=== PATIENT | female | born 1955 | race Caucasian/White ===

== ENCOUNTER → 2020-10-24 | Day surgery (SDC) | payer BC, MEDICARE ==
[~2020-10-24] MED LIST: Ketamine 200 MG/20 ML MDV ONE; Lactated Ringers 1,000 ML IV SCH; Propofol 200 MG/20 ML SDV ONE; fentaNYL 100 MCG/2 ML SDV ONE
[2020-10-24 10:47] VITALS: BP 105/59; PULSE 53
--- NOTE | 2020-10-24 11:49 | OR ---
DATE OF OPERATION: 10/24/2020 PREOPERATIVE DIAGNOSIS: SCREENING COLONOSCOPY. POSTOPERATIVE DIAGNOSIS: SCREENING COLONOSCOPY. SURGEON: Aleksandr Andrade MD PROCEDURE: FULL-LENGTH COLONOSCOPY WITH FORCEPS POLYP REMOVAL X2. ANESTHESIA: MAC. COMPLICATIONS: None. SPECIMEN: Tubular adenomas x2. FINDINGS: 1. Full-length colonoscopy. 2. [id number] distal sigmoid diverticulosis. 3. Two sessile polyps, approximately 3 mm in rectosigmoid junction. RECOMMENDATIONS: Followup colonoscopy in 5 years. INDICATIONS: The patient is overdue for routine colonoscopy. She was sent by Carlene Gutierrez for screening exam. DESCRIPTION OF PROCEDURE: The patient was prepped and draped, placed in the left lateral decubitus position. A lubricated Olympus colonoscope was inserted and with relative ease advanced to the cecum. Direct visualization of ileocecal valve and appendiceal orifice was accomplished. The bowel prep was adequate. Upon withdrawal of the scope, the cecum, ascending, transverse colon were completely benign as was the descending area. The patient does have diverticular disease extending mostly from the [id number] sigmoid into the rectosigmoid junction. It is mild-to- moderate in severity. In the rectosigmoid area around 25 to 20 cm, the patient had 2 small sessile polyps, both removed with a forceps biopsy x2 in their entirety. The rectal vault itself appeared benign. Retroflexion of the scope in the rectum showed no perianal lesions. Air was suctioned, scope removed without complication. DONA/DANIELA /[id number]
== END ==
LOC: CC.SDS 08:50
PROVIDERS: ATTEND Family Medicine
DX: Z12.11 Encounter for screening for malignant neoplasm of colon (principal); K63.5 Polyp of colon; K57.30 Diverticulosis of large intestine without perforation or abscess without bleeding; I10 Essential (primary) hypertension; E78.00 Pure hypercholesterolemia, unspecified; Z88.8 Allergy status to other drugs, medicaments and biological substances; Z79.899 Other long term (current) drug therapy
CPT/HCPCS: 00812; J2704; J3010; J7120